=== PATIENT | female | born 1955 | race American Indian/Alaskan Native ===

== ENCOUNTER 2019-02-28 21:59 | Observation (INO) | payer BC, OTHER ==
[2019-02-28 21:59] VITALS: BMI 35.1
[2019-02-28] MEDS ORDERED: Albuterol-Ipratrop 3 mg / 0.5 (3 ml) UD ONE ×2 (22:21→22:51)
[2019-02-28] MEDS ORDERED: Albuterol-Ipratrop 3 mg / 0.5 (3 ml) UD INH STA ×3 (22:25→22:30)
--- NOTE | 2019-02-28 22:38 | ED PDOC ---
HPI: SOB/CHF/COPD Time Seen by Provider: 02/28/19 22:14 Chief Complaint (Nursing): Respiratory Distress Chief Complaint (Provider): Shortness of Breath History Per: Patient History/Exam Limitations: no limitations Onset/Duration Of Symptoms: Days (1x week) Current Symptoms Are (Timing): Still Present Severity: Moderate Associated Symptoms: Other (non-productive cough, pleuritic mid-sternal chest pain, palpitations). denies: Fever Additional Complaint(s): 63 year old female with a past medical history of asthma presents to the ED for an evaluation of shortness of breath ongoing for 1x week. Patient reports using her albuterol inhaler without relief. Patient also reports having a non- productive cough, pleuritic mid-sternal chest pain, and palpitations. Patient denies having fevers. PMD: None Past Medical History Reviewed: Historical Data, Nursing Documentation, Vital Signs Vital Signs: Last Vital Signs Temp 98.7 F 02/28/19 22:02 Pulse 104 H 02/28/19 22:02 Resp 22 02/28/19 22:02 BP 155/87 H 02/28/19 22:02 Pulse Ox 98 02/28/19 22:02 EDUARDO Report Viewed: Yes Primary Care Provider: FAMILY PROVIDER,NO - Medical History PMH: Asthma Denies: Chronic Kidney Disease - Surgical History Surgical History: Denies: Pacemaker - Family History Family History: States: No Known Family Hx - Social History Current smoker - smoking cessation education provided: No Alcohol: None Drugs: Denies - Immunization History Hx Tetanus Toxoid Vaccination: Yes Hx Influenza Vaccination: Yes Hx Pneumococcal Vaccination: No - Home Medications Home Medications: Ambulatory Orders Medication Instructions Recorded Fluticasone/Salmeterol [Advair 1 each IH BID 06/18/17 250-50 Diskus] Albuterol HFA [Ventolin HFA 90 1 aer IH Q4H PRN 03/01/19 mcg/actuation (8 g)] Albuterol/Ipratropium [Duoneb 3 3 ml IH Q4 PRN #30 neb 03/02/19 MG/3 Ml-0.5 MG/3 Ml 3 Ml] Prednisone 5 mg PO DAILY 21 Days tab.ds.pk 03/02/19 - Allergies Allergies/Adverse Reactions: Allergies Allergy/AdvReac Type Severity Reaction Status Date / Time iodine Allergy Verified 06/18/17 21:03 Review of Systems ROS Statement: Except As Marked, All Systems Reviewed And Found Negative Constitutional: Negative for: Fever Cardiovascular: Positive for: Chest Pain (pleuritic mid-sternal chest pain), Pa lpitations Respiratory: Positive for: Cough (non-productive), Shortness of Breath Physical Exam - Reviewed Nursing Documentation Reviewed: Yes Vital Signs Reviewed: Yes - Physical Exam Appears: Positive for: Well, Non-toxic, No Acute Distress Head Exam: Positive for: ATRAUMATIC, NORMOCEPHALIC Skin: Positive for: Normal Color, Warm, Dry Eye Exam: Positive for: Normal appearance Cardiovascular/Chest: Positive for: Regular Rate, Rhythm Respiratory: Positive for: Wheezing (bilateral), Other (poor air movement) Neurological/Psych: Positive for: Awake, Alert, Oriented (3x), Other (unable to speak in full sentences) - Laboratory Results Result Diagrams: 03/02/19 05:20 03/02/19 05:20 - ECG O2 Sat by Pulse Oximetry: 98 (RA) Pulse Ox Interpretation: Normal - Radiology X-Ray: Interpreted by Me X-Ray Interpretation: Cardiomegaly Medical Decision Making Medical Decision Makin:14 Initial impression: 63 year old female with asthma exacerbation and pleuritic chest pain. Initial plan: * XRay chest * EKG * CMP * troponin I * udip * CBC with differential * PT/PTT * blood culture * urinalysis * duoneb 3 ml INH (3x) * peak flow pre post treatment (3x) * solumedrol 125 IVP * reevaluation 23:00 Patient is signed out by me to Sai Hopper MD pending troponin and reevaluation. Scribe Attestation: Documented by Tammi Bedolla, acting as a scribe for Ladan Paulino MD. Provider Scribe Attestation: All medical record entries made by the Scribe were at my direction and personally dictated by me. I have reviewed the chart and agree that the record accurately reflects my personal performance of the history, physical exam, medical decision making, and the department course for this patient. I have also personally directed, reviewed, and agree with the discharge instructions and disposition. Disposition - Clinical Impression Clinical Impression: Asthma exacerbation - Patient ED Disposition Is Patient to be Admitted: Transfer of Care - Disposition Disposition Time: 23:00 Condition: STABLE Patient Signed Over To: Sai Hopper
[2019-02-28 22:45] LABS: BASO # 0.1 K/uL (0.0-0.2); BASO % 2.1 % (0.0-2.0); EOS # 0.1 K/uL (0.0-0.7); EOS % 1.8 % (0.0-4.0); HEMOGLOBIN 12.3 g/dL (12.0-16.0); LYMPH % 32.3 % (20.0-40.0); MEAN CELL VOLUME 91.7 fl (81.0-99.0); MEAN CORPUSCULAR HEMOGLOBIN 31.2 pg (27.0-31.0); MEAN PLATELET VOLUME 7.8 fl (7.2-11.7); MONO # 0.9 K/uL (0.0-0.8); NEUT # 3.1 K/uL (1.8-7.0); NEUT % 48.8 % (50.0-75.0); NRBC % 0.2 % (0.0-0.0); RBC 3.95 Mil/uL (3.80-5.20); RED CELL DISTRIBUTION WIDTH 14.1 % (11.5-14.5); WHITE BLOOD COUNT 6.3 K/uL (4.8-10.8)
[2019-02-28 22:49] LABS: INR 1.1
[2019-02-28 22:52] LABS: PARTIAL THROMBOPLASTIN TIME 38.8 Seconds (25.6-37.1)
[2019-02-28 22:58] LABS: ALB/GLOB RATIO 1.1 (1.0-2.1); ALBUMIN 4.2 g/dL (3.5-5.0); ALT/SGPT 24 U/L (9-52); AST/SGOT 24 U/L (14-36); BLOOD UREA NITROGEN 13 mg/dl (7-17); CALCIUM 9.1 mg/dL (8.4-10.2); GFR NON-AFRICAN AMERICAN > 60
--- NOTE | 2019-02-28 23:06 | ED PDOC ---
- Laboratory Results Result Diagrams: 02/28/19 22:30 02/28/19 22:30 Lab Results: PT 13.0 Seconds (9.8-13.1) 02/28/19 22: INR 1.1 02/28/19 22:30 APTT 38.8 Seconds (25.6-37.1) H 02/28/19 22:30 Total Bilirubin 0.5 mg/dl (0.2-1.3) 02/28/19 22:30 AST 24 U/L (14-36) 02/28/19 22:30 ALT 24 U/L (9-52) 02/28/19 22: Alkaline Phosphatase 78 U/L (38-126) 02/28/19: Total Protein 8.2 G/DL (6.3-8.2) 02/28/19 22: Albumin 4.2 g/dL (3.5-5.0) 02/28/19: Globulin 4.0 gm/dL (2.2-3.9) H 02/28/19: Albumin/Globulin Ratio 1.1 (1.0-2.1) 02/28/19 22:30 - ECG O2 Sat by Pulse Oximetry: 98 (RA) Medical Decision Making Medical Decision Makin:00 Patient is signed out to me by Ladan Paulino MD pending troponin and reevaluation. 00:45 Patient is still complaining of shortness of breath, still wheezing on exam, states that even talking makes her winded. Will give magnesium, obtain ABG. Case discussed with Dr. Figueroa who accepts patient for OBS MS for asthma exacerbation -- Scribe Attestation: Documented by Tammi Bedolla, acting as a scribe for Sai Hopper MD. Provider Scribe Attestation: All medical record entries made by the Scribe were at my direction and personally dictated by me. I have reviewed the chart and agree that the record accurately reflects my personal performance of the history, physical exam, medical decision making, and the department course for this patient. I have also personally directed, reviewed, and agree with the discharge instructions and disposition. Disposition Discussed With Dr.: Jasper Figueroa Doctor Will See Patient In The: Hospital Counseled Patient/Family Regarding: Studies Performed, Diagnosis - Clinical Impression Clinical Impression: Asthma exacerbation - POA Present On Arrival: None - Disposition Disposition: Hospitalized as Observation Patient Disposition Time: 00:45 Condition: FAIR
[2019-02-28 23:24] LABS: SQUAMOUS EPITHIAL 2 /hpf (0-5); URINE BACTERIA RARE (<OCC); URINE BILIRUBIN NEGATIVE (NEGATIVE); URINE BLOOD NEGATIVE (NEGATIVE); URINE CLARITY SLIGHTY-CLOUDY (Clear); URINE COLOR YELLOW (YELLOW); URINE GLUCOSE (UA) NEG (NEGATIVE); URINE LEUKOCYTE ESTERASE MOD Leu/uL (Negative); URINE PROTEIN NEGATIVE (NEGATIVE)
[2019-03-01 00:51] LABS: ABG ALLEN TEST YES; ARTERIAL BLOOD GAS HCO3 27.8 mmol/L (21-28); ARTERIAL BLOOD GAS O2 SAT 99.5 % (95-98); ARTERIAL BLOOD GAS PCO2 39 mm/Hg (35-45); ARTERIAL BLOOD GAS PH 7.46 (7.35-7.45); ARTERIAL BLOOD GAS PO2 94 mm/Hg (80-100); ARTERIAL BLOOD GAS TCO2 28.9 mmol/L (22-28)
[2019-03-01] MEDS ORDERED: Magnesium Sulfate 1 gm in D5W 1 GM/100 ML BAG IVPB ONE (01:22)
[2019-03-01] MEDS ORDERED: Magnesium Sulfate 2 gm/50 ml 2 GM/50 ML BAG IVPB ONE (01:23)
[2019-03-01] MEDS ORDERED: Magnesium Sulfate 2 gm/50 ml 2 GM/50 ML BAG ONE (01:24)
[2019-03-01 07:20] LABS: HEMOGLOBIN 12.6 g/dL (12.0-16.0); MEAN CELL VOLUME 93.5 fl (81.0-99.0); MEAN CORPUSCULAR HEMOGLOBIN 31.2 pg (27.0-31.0); MEAN CORPUSCULAR HGB CONC 33.3 g/dL (33.0-37.0); RBC 4.05 Mil/uL (3.80-5.20); RED CELL DISTRIBUTION WIDTH 13.7 % (11.5-14.5)
[2019-03-01 07:34] LABS: ALB/GLOB RATIO 1.1 (1.0-2.1); ALBUMIN 4.3 g/dL (3.5-5.0); ALT/SGPT 17 U/L (9-52); AST/SGOT 20 U/L (14-36); BLOOD UREA NITROGEN 13 mg/dl (7-17); CALCIUM 9.4 mg/dL (8.4-10.2); GFR NON-AFRICAN AMERICAN > 60; HDL CHOLESTEROL 44 MG/DL (30-70)
[2019-03-01 07:41] LABS: LDL CHOLESTEROL 130 mg/dL (0-129)
[2019-03-01] MEDS: Albuterol-Ipratrop 3 mg / 0.5 (3 ml) UD INH SCH ×5 (08:26→23:02)
[2019-03-01] MEDS ORDERED: methylPREDNISolone 40 MG in Sodium Chloride 0.9% 50 ML IVP SCH (09:00)
[2019-03-01] MEDS ORDERED: MethylPREDNISolone 40 mg Vial IVP SCH (09:00)
--- NOTE | 2019-03-01 09:05 | RAD ---
Date of service: 02/28/2019 HISTORY: SOB COMPARISON: Chest radiographs 06/21/2011. TECHNIQUE: 1 view obtained. FINDINGS: LUNGS: No active pulmonary disease. PLEURA: No significant pleural effusion identified, no pneumothorax apparent. CARDIOVASCULAR: No aortic atherosclerotic calcification present. Cardiomegaly is not excluded. No pulmonary vascular congestion. OSSEOUS STRUCTURES: No significant abnormalities. VISUALIZED UPPER ABDOMEN: Normal. OTHER FINDINGS: None. IMPRESSION: Potential interval cardiomegaly though technical magnification is at least in part in effect in this portable radiograph. No pulmonary vascular congestion, infiltrate or pleural disease appreciable.
--- NOTE | 2019-03-01 16:20 | CP.PCM.HP ---
History of Present Illness - History of Present Illness History of Present Illness: CC: Respiratory Distress. 63 y/o F, PMHx Asthma, came to ER [facility] [place] on 02/28/19 to be evaluated for SOB x 1 week, increased to moderate-severe on DOA, associated to LEIGH, dypnea when walking, cough non productive, non bloody. Pt using Albuterol HFA, Advair at home with no improvement. Worsening symptoms: R posterior CP with coughing, palpitations. Aggravated factor: walk/exercise/ADL's. Pt denied: fever, chills, n/v/d, abdominal pain, urinary symptoms, CP, syncope, back pain, sick contact, fall, recent travel out of [facility] [[email or web address] CXR: No vascular congestion, infiltrate or pleural disease. EKG: Normal sinus rhythm, minimal voltage criteria for LVH. Present on Admission - Present on Admission Any Indicators Present on Admission: No Review of Systems - Constitutional Constitutional: Other (negative) - EENT Eyes: Requires Corrective Lenses Ears: Other (negative) Nose/Mouth/Throat: Other (negative) - Cardiovascular Cardiovascular: Rapid Heart Rate - Respiratory Respiratory: Cough, Dyspnea, Dyspnea on Exertion, Pain with Coughing - Gastrointestinal Gastrointestinal: Other (negative) - Genitourinary Genitourinary: Other (negative) - Musculoskeletal Musculoskeletal: Other (negative) - Integumentary Integumentary: Other (negative) - Neurological Neurological: Other (negative) - Psychiatric Psychiatric: Other (negative) - Endocrine Endocrine: Other (negative) - Hematologic/Lymphatic Hematologic: Other (negative) Past Patient History - Infectious Disease Hx of Infectious Diseases: None - Past Medical History & Family History Past Medical History?: Yes Pertinent Family History: Unknown - Past Social History Smoking Status: Former Smoker Alcohol: None Drugs: Denies Home Situation {Lives}: With Family - CARDIAC Hx Cardiac Disorders: No Hx Pacemaker: No - PULMONARY Hx Respiratory Disorders: Yes Hx Asthma: Yes - NEUROLOGICAL Hx Neurological Disorder: No - HEENT Hx HEENT Problems: No - RENAL Hx Chronic Kidney Disease: No - ENDOCRINE/METABOLIC Hx Endocrine Disorders: No - HEMATOLOGICAL/ONCOLOGICAL Hx Blood Disorders: No Hx AIDS: No Hx Blood Transfusions: No Hx Human Immunodeficiency Virus (HIV): No - INTEGUMENTARY Hx Dermatological Problems: No - MUSCULOSKELETAL/RHEUMATOLOGICAL Hx Musculoskeletal Disorders: No Hx Falls: No - GASTROINTESTINAL Hx Gastrointestinal Disorders: No - GENITOURINARY/GYNECOLOGICAL Hx Genitourinary Disorders: No - PSYCHIATRIC Hx Psychophysiologic Disorder: No Hx Emotional Abuse: No Hx Physical Abuse: No Hx Substance Use: No - SURGICAL HISTORY Hx Surgeries: No - ANESTHESIA Hx Anesthesia: No Hx Anesthesia Reactions: No Hx Malignant Hyperthermia: No Has any member of the family had a problem w/ anesthesia?: No Meds Home Medications: Home Medication List Medication Instructions Recorded Confirmed Type Albuterol/Ipratropium [Duoneb 3 3 ml IH Q4 PRN #30 neb 03/02/19 Rx MG/3 Ml-0.5 MG/3 Ml 3 Ml] Prednisone 5 mg PO DAILY 21 Days tab.ds.pk 03/02/19 Rx Allergies/Adverse Reactions: Allergies Allergy/AdvReac Type Severity Reaction Status Date / Time iodine Allergy Verified 06/18/17 21:03 Physical Exam - Constitutional Appears: No Acute Distress - Head Exam Head Exam: NORMAL INSPECTION - Eye Exam Eye Exam: PERRL - ENT Exam ENT Exam: Normal Exam - Neck Exam Neck exam: Positive for: Normal Inspection - Respiratory Exam Respiratory Exam: Decreased Breath Sounds (at bases) - Cardiovascular Exam Cardiovascular Exam: REGULAR RHYTHM - GI/Abdominal Exam GI & Abdominal Exam: Normal Bowel Sounds, Soft - Extremities Exam Extremities exam: Positive for: normal inspection - Back Exam Back exam: NORMAL INSPECTION - Neurological Exam Neurological exam: Alert, Oriented x3 Additional comments: No motor/sensory deficit. - Psychiatric Exam Psychiatric exam: Normal Mood - Skin Skin Exam: Warm Results - Vital Signs Recent Vital Signs: Last Vital Signs Temp 97.9 F 03/01/19 07:51 Pulse 83 03/01/19 07:51 Resp 20 03/01/19 07:51 BP 127/78 03/01/19 07:51 Pulse Ox 95 03/01/19 07:51 reviewed J.P. - Labs Result Diagrams: 03/02/19 05:20 03/02/19 05:20 Labs: Laboratory Results - last 24 hr 02/28/19 02/28/19 02/28/19 22:30 22:30 22:30 WBC 6.3 RBC 3.95 Hgb 12.3 Hct 36.2 MCV 91.7 MCH 31.2 H MCHC 34.0 RDW 14.1 Plt Count 331 MPV 7.8 Neut % (Auto) 48.8 L Lymph % (Auto) 32.3 [place] % (Auto) 15.0 H Eos % (Auto) 1.8 Baso % (Auto) 2.1 H Neut # (Auto) 3.1 Lymph # (Auto) 2.0 [place] # (Auto) 0.9 H Eos # (Auto) 0.1 Baso # (Auto) 0.1 PT 13.0 INR 1.1 APTT 38.8 H pCO2 pO2 HCO3 ABG pH ABG Total CO2 ABG O2 Saturation ABG Base Excess Teodoro Test ABG Potassium A-a O2 Difference Glucose Lactate FiO2 Sodium 137 Potassium 4.6 Chloride 102 Carbon Dioxide 28 Anion Gap 12 BUN 13 Creatinine 0.6 L Est GFR ( Amer) > 60 Est GFR (Non-Af Amer) > 60 Random Glucose 100 Calcium 9.1 Total Bilirubin 0.5 AST 24 ALT 24 Alkaline Phosphatase 78 Troponin I < 0.0120 Total Protein 8.2 Albumin 4.2 Globulin 4.0 H Albumin/Globulin Ratio 1.1 Triglycerides Cholesterol LDL Cholesterol Direct HDL Cholesterol TSH 3rd Generation Arterial Blood Potassium Urine Color Urine Clarity Urine pH Ur Specific [place] Urine Protein Urine Glucose (UA) Urine Ketones Urine Blood Urine Nitrate Urine Bilirubin Urine Urobilinogen Ur Leukocyte Esterase Urine RBC (Auto) Urine Microscopic WBC Ur Squamous Epith Cells Urine Bacteria 02/28/19 03/01/19 03/01/19 23:09 00:47 06:20 WBC 5.0 RBC 4.05 Hgb 12.6 Hct 37.9 MCV 93.5 MCH 31.2 H MCHC 33.3 RDW 13.7 Plt Count 333 MPV Neut % (Auto) Lymph % (Auto) [place] % (Auto) Eos % (Auto) Baso % (Auto) Neut # (Auto) Lymph # (Auto) [place] # (Auto) Eos # (Auto) Baso # (Auto) PT INR APTT pCO2 39 pO2 94 HCO3 27.8 ABG pH 7.46 H ABG Total CO2 28.9 H ABG O2 Saturation 99.5 H ABG Base Excess 3.7 H Teodoro Test Yes ABG Potassium 4.0 A-a O2 Difference 57.0 Glucose 121 H Lactate 0.6 L FiO2 28.0 Sodium 137.0 Potassium Chloride 105.0 Carbon Dioxide Anion Gap BUN Creatinine Est GFR ( Amer) Est GFR (Non-Af Amer) Random Glucose Calcium Total Bilirubin AST ALT Alkaline Phosphatase Troponin I Total Protein Albumin Globulin Albumin/Globulin Ratio Triglycerides Cholesterol LDL Cholesterol Direct HDL Cholesterol TSH 3rd Generation Arterial Blood Potassium 4.0 Urine Color Yellow Urine Clarity Slighty-cloudy Urine pH 6.0 Ur Specific [place] 1.020 Urine Protein Negative Urine Glucose (UA) Neg Urine Ketones Negative Urine Blood Negative Urine Nitrate Negative Urine Bilirubin Negative Urine Urobilinogen 2.0 H Ur Leukocyte Esterase Mod Urine RBC (Auto) 3 Urine Microscopic WBC 1 Ur Squamous Epith Cells 2 Urine Bacteria Rare 03/01/19 06:20 WBC RBC Hgb Hct MCV MCH MCHC RDW Plt Count MPV Neut % (Auto) Lymph % (Auto) [place] % (Auto) Eos % (Auto) Baso % (Auto) Neut # (Auto) Lymph # (Auto) [place] # (Auto) Eos # (Auto) Baso # (Auto) PT INR APTT pCO2 pO2 HCO3 ABG pH ABG Total CO2 ABG O2 Saturation ABG Base Excess Teodoro Test ABG Potassium A-a O2 Difference Glucose Lactate FiO2 Sodium 140 Potassium 4.2 Chloride 103 Carbon Dioxide 27 Anion Gap 14 BUN 13 Creatinine 0.6 L Est GFR ( Amer) > 60 Est GFR (Non-Af Amer) > 60 Random Glucose 123 H Calcium 9.4 Total Bilirubin 0.3 AST 20 ALT 17 Alkaline Phosphatase 72 Troponin I Total Protein 8.4 H Albumin 4.3 Globulin 4.1 H Albumin/Globulin Ratio 1.1 Triglycerides 51 Cholesterol 218 H LDL Cholesterol Direct 130 H HDL Cholesterol 44 TSH 3rd Generation 0.28 L Arterial Blood Potassium Urine Color Urine Clarity Urine pH Ur Specific [place] Urine Protein Urine Glucose (UA) Urine Ketones Urine Blood Urine Nitrate Urine Bilirubin Urine Urobilinogen Ur Leukocyte Esterase Urine RBC (Auto) Urine Microscopic WBC Ur Squamous Epith Cells Urine Bacteria reviewed J.P. - EKG Data EKG comments: reviewed J.P. - Imaging and Cardiology Chest x-ray Status: Report reviewed by me (LexyP.) Assessment & Plan (1) Asthma exacerbation Status: Acute Priority: High (2) Pleuritic chest pain Status: Acute Priority: High - Assessment and Plan (Free Text) Plan: F/U Blood C-S, continue Duoneb, Solu-Medrol, O2 NC 2 L/M and rest of Tx. - Date & Time Date: 03/01/19 Time: 11:30
--- NOTE | 2019-03-01 19:01 | CARD ---
APPROVED REPORT Date of service: 02/28/2019 EKG Measurement Heart [id number] <Conclusion> Normal sinus rhythm Minimal voltage criteria for LVH, may be normal variant Borderline ECG
[2019-03-01] MEDS: FLUTICASONE PROPION/SALMETEROL 232-14 INHALER IH SCH (20:26)
[2019-03-01] MEDS: MethylPREDNISolone 40 mg Vial IVP SCH (20:29)
[2019-03-02 00:51] VITALS: TEMP 97.7
[2019-03-02] MEDS: Albuterol-Ipratrop 3 mg / 0.5 (3 ml) UD INH SCH ×3 (03:47→11:28)
[2019-03-02 06:32] LABS: BASO # 0.1 K/uL (0.0-0.2); BASO % 0.6 % (0.0-2.0); EOS % 0.1 % (0.0-4.0); LYMPH # 1.2 K/uL (1.0-4.3); LYMPH % 13.5 % (20.0-40.0); MEAN CELL VOLUME 93.7 fl (81.0-99.0); MEAN CORPUSCULAR HEMOGLOBIN 31.2 pg (27.0-31.0); MEAN CORPUSCULAR HGB CONC 33.3 g/dL (33.0-37.0); MEAN PLATELET VOLUME 7.9 fl (7.2-11.7); MONO # 0.8 K/uL (0.0-0.8); MONO % 9.2 % (0.0-10.0); NEUT # 6.7 K/uL (1.8-7.0); NEUT % 76.6 % (50.0-75.0); NRBC % 0.1 % (0.0-0.0); RBC 3.86 Mil/uL (3.80-5.20); RED CELL DISTRIBUTION WIDTH 14.3 % (11.5-14.5); WHITE BLOOD COUNT 8.7 K/uL (4.8-10.8)
[2019-03-02 06:43] LABS: ALB/GLOB RATIO 1.1 (1.0-2.1); ALT/SGPT 16 U/L (9-52); AST/SGOT 19 U/L (14-36); BLOOD UREA NITROGEN 15 mg/dl (7-17); CALCIUM 9.1 mg/dL (8.4-10.2); GFR NON-AFRICAN AMERICAN > 60; HDL CHOLESTEROL 41 MG/DL (30-70)
[2019-03-02 06:53] LABS: LDL CHOLESTEROL 113 mg/dL (0-129)
[2019-03-02 08:19] VITALS: BP 109/64; PULSE 80; RESP 20
[2019-03-02] MEDS: FLUTICASONE PROPION/SALMETEROL 232-14 INHALER IH SCH (09:04)
[2019-03-02] MEDS: MethylPREDNISolone 40 mg Vial IVP SCH (09:06)
--- NOTE | 2019-03-02 14:05 | CP.PCM.PN ---
Objective - Vital Signs/Intake and Output Vital Signs (last 24 hours): Temp Pulse Resp BP Pulse Ox 97.7 F 80 20 109/64 97 03/02/19 08:17 03/02/19 08:17 03/02/19 08:17 03/02/19 08:17 03/02/19 08:17 - Medications Medications: Current Medications Albuterol/Ipratropium (Duoneb 3 Mg/0.5 Mg (3 Ml) Ud) 3 ml INH RQ4 JADEN Last Admin: 03/02/19 11:28 Dose: 3 ml Methylprednisolone (Solu-Medrol) 40 mg IVP Q12 JADEN Last Admin: 03/02/19 09:06 Dose: 40 mg - Labs Labs: 03/02/19 05:20 03/02/19 05:20 PT 13.0 Seconds (9.8-13.1) 02/28/19 22:30 INR 1.1 02/28/19 22:30 APTT 38.8 Seconds (25.6-37.1) H 02/28/19 22:30 Assessment and Plan (1) Asthma exacerbation Status: Acute (2) Pleuritic chest pain Status: Acute
[2019-03-02] MEDS ORDERED: Pneumococcal 23-Valent Vaccine IM ONE (14:11)
[2019-03-02 15:58] VITALS: O2SAT 98
--- NOTE | 2019-03-02 16:33 | CP.PCM.DIS ---
Provider - Provider Date of Admission: 03/01/19 00:48 Attending physician: Jasper Figueroa MD Time Spent in preparation of Discharge (in minutes): 35 Diagnosis - Discharge Diagnosis (1) Asthma exacerbation Status: Acute Priority: High (2) Pleuritic chest pain Status: Acute Priority: High Hospital Course - Lab Results Lab Results: Micro Results 02/28/19 02:10 Blood-Venous Blood Culture - Preliminary NO GROWTH AFTER 24 HOURS 02/28/19 02:10 Blood-Venous Blood Culture - Preliminary NO GROWTH AFTER 24 HOURS Most Recent Lab Values WBC 8.7 K/uL (4.8-10.8) D 03/02/19 05:20 RBC 3.86 Mil/uL (3.80-5.20) 03/02/19 05:20 Hgb 12.0 g/dL (12.0-16.0) 03/02/19 05:20 Hct 36.2 % (34.0-47.0) 03/02/19 05:20 MCV 93.7 fl (81.0-99.0) 03/02/19 05:20 MCH 31.2 pg (27.0-31.0) H 03/02/19 05:20 MCHC 33.3 g/dL (33.0-37.0) 03/02/19 05:20 RDW 14.3 % (11.5-14.5) 03/02/19 05:20 Plt Count 345 K/uL (130-400) 03/02/19 05:20 MPV 7.9 fl (7.2-11.7) 03/02/19 05:20 Neut % (Auto) 76.6 % (50.0-75.0) H 03/02/19 05:20 Lymph % (Auto) 13.5 % (20.0-40.0) L 03/02/19 05:20 [place] % (Auto) 9.2 % (0.0-10.0) 03/02/19 05:20 Eos % (Auto) 0.1 % (0.0-4.0) 03/02/19 05:20 Baso % (Auto) 0.6 % (0.0-2.0) 03/02/19 05:20 Neut # (Auto) 6.7 K/uL (1.8-7.0) 03/02/19 05:20 Lymph # (Auto) 1.2 K/uL (1.0-4.3) 03/02/19 05:20 [place] # (Auto) 0.8 K/uL (0.0-0.8) 03/02/19 05:20 Eos # (Auto) 0.0 K/uL (0.0-0.7) 03/02/19 05:20 Baso # (Auto) 0.1 K/uL (0.0-0.2) 03/02/19 05:20 PT 13.0 Seconds (9.8-13.1) 02/28/19 22:30 INR 1.1 02/28/19 22:30 APTT 38.8 Seconds (25.6-37.1) H 02/28/19 22:30 pCO2 39 mm/Hg (35-45) 03/01/19 00:47 pO2 94 mm/Hg (80-100) 03/01/19 00:47 HCO3 27.8 mmol/L (21-28) 03/01/19 00:47 ABG pH 7.46 (7.35-7.45) H 03/01/19 00:47 ABG Total CO2 28.9 mmol/L (22-28) H 03/01/19 00:47 ABG O2 Saturation 99.5 % (95-98) H 03/01/19 00:47 ABG Base Excess 3.7 mmol/L (-2.0-3.0) H 03/01/19 00:47 Teodoro Test Yes 03/01/19 00:47 ABG Potassium 4.0 mmol/L (3.6-5.2) 03/01/19 00:47 A-a O2 Difference 57.0 mm/Hg 03/01/19 00:47 Sodium 137.0 mmol/L (132-148) 03/01/19 00:47 Chloride 105.0 mmol/L (98-107) 03/01/19 00:47 Glucose 121 mg/dL (65-105) H 03/01/19 00:47 Lactate 0.6 mmol/L (0.7-2.1) L 03/01/19 00:47 FiO2 28.0 % 03/01/19 00:47 Sodium 141 mmol/l (132-148) 03/02/19 05:20 Potassium 4.8 MMOL/L (3.6-5.0) 03/02/19 05:20 Chloride 102 mmol/L (98-107) 03/02/19 05:20 Carbon Dioxide 31 mmol/L (22-30) H 03/02/19 05:20 Anion Gap 13 (10-20) 03/02/19 05:20 BUN 15 mg/dl (7-17) 03/02/19 05:20 Creatinine 0.5 mg/dl (0.7-1.2) L 03/02/19 05:20 Est GFR ( Amer) > 60 03/02/19 05:20 Est GFR (Non-Af Amer) > 60 03/02/19 05:20 Random Glucose 132 mg/dL (65-105) H 03/02/19 05:20 Calcium 9.1 mg/dL (8.4-10.2) 03/02/19 05:20 Total Bilirubin 0.2 mg/dl (0.2-1.3) 03/02/19 05:20 AST 19 U/L (14-36) 03/02/19 05:20 ALT 16 U/L (9-52) 03/02/19 05:20 Alkaline Phosphatase 64 U/L (38-126) 03/02/19 05:20 Troponin I < 0.0120 ng/mL (0.00-0.120) 02/28/19 22:30 Total Protein 7.7 G/DL (6.3-8.2) 03/02/19 05:20 Albumin 4.0 g/dL (3.5-5.0) 03/02/19 05:20 Globulin 3.8 gm/dL (2.2-3.9) 03/02/19 05:20 Albumin/Globulin Ratio 1.1 (1.0-2.1) 03/02/19 05:20 Triglycerides 46 mg/DL (0-149) 03/02/19 05:20 Cholesterol 196 mg/dL (0-199) 03/02/19 05:20 LDL Cholesterol Direct 113 mg/dL (0-129) 03/02/19 05:20 HDL Cholesterol 41 MG/DL (30-70) 03/02/19 05:20 Thyroxine (T4) 9.81 ug/dl (5.5-11.0) 03/02/19 05:20 TSH 3rd Generation 0.39 mIU/ML (0.46-4.68) L 03/02/19 05:20 Arterial Blood Potassium 4.0 mmol/L (3.6-5.2) 03/01/19 00:47 Urine Color Yellow (YELLOW) 02/28/19 23:09 Urine Clarity Slighty-cloudy (Clear) 02/28/19 23:09 Urine pH 6.0 (5.0-8.0) 02/28/19 23:09 Ur Specific [place] 1.020 (1.003-1.030) 02/28/19 23:09 Urine Protein Negative mg/dL (NEGATIVE) 02/28/19 23:09 Urine Glucose (UA) Neg mg/dL (NEGATIVE) 02/28/19 23:09 Urine Ketones Negative mg/dL (NEGATIVE) 02/28/19 23:09 Urine Blood Negative (NEGATIVE) 02/28/19 23:09 Urine Nitrate Negative (NEGATIVE) 02/28/19 23:09 Urine Bilirubin Negative (NEGATIVE) 02/28/19 23:09 Urine Urobilinogen 2.0 mg/dL (0.2-1.0) H 02/28/19 23:09 Ur Leukocyte Esterase Mod Yessy/uL (Negative) 02/28/19 23:09 Urine RBC (Auto) 3 /hpf (0-3) 02/28/19 23:09 Urine Microscopic WBC 1 /hpf (0-5) 02/28/19 23:09 Ur Squamous Epith Cells 2 /hpf (0-5) 02/28/19 23:09 Urine Bacteria Rare (<OCC) 02/28/19 23:09 - Date & Time of H&P Date of H&P: 03/01/19 Time of H&P: 11:30 Discharge Exam - Head Exam Head Exam: ATRAUMATIC, NORMOCEPHALIC - Eye Exam Eye Exam: PERRL - ENT Exam ENT Exam: Normal Exam - Neck Exam Neck exam: Normal Inspection - Respiratory Exam Respiratory Exam: Decreased Breath Sounds (at bases) - Cardiovascular Exam Cardiovascular Exam: REGULAR RHYTHM - GI/Abdominal Exam GI & Abdominal Exam: Normal Bowel Sounds, Soft - Extremities Exam Extremities exam: normal inspection - Back Exam Back exam: NORMAL INSPECTION - Neurological Exam Neurological exam: Alert, Oriented x3 Additional comments: No motor sensory deficit - Psychiatric Exam Psychiatric exam: Normal Mood - Skin Skin Exam: Warm Discharge Plan - Discharge Medications Prescriptions: Albuterol/Ipratropium [Duoneb 3 MG/3 Ml-0.5 MG/3 Ml 3 Ml] 3 ml IH Q4 PRN #30 neb PRN Reason: Shortness Of Breath Prednisone 5 mg PO DAILY 21 Days tab.ds.pk - Follow Up Plan Condition: STABLE Disposition: HOME/ ROUTINE Patient education suggested?: Yes Instructions: Asthma, Adult (DC) Additional Instructions: hacer alex con stephens doctor primario dentro de 1 semana Referrals: Jasper Figueroa MD [Staff Provider] -
== END 2019-03-02 14:48 | disposition home or self-care (01) ==
LOC: H.ER 21:59 → H.ERHOLD 03-01 00:48 → H.MEDSURG1 03-01 03:26
PROVIDERS: ADMIT Internal Medicine Pulmonary Disease; ATTEND Internal Medicine Pulmonary Disease
DX: J45.901 Unspecified asthma with (acute) exacerbation (principal); Z87.891 Personal history of nicotine dependence; Z23 Encounter for immunization; Z91.041 Radiographic dye allergy status
CPT/HCPCS: 36415; 71045; 80053; 80061; 81003; 82803; 84436; 84443; 84484; 85025; 85027; 85610; 85730; 87040; 90471; 90732; 93005; 94150; 94640; 96374; 99284; G0378; J2920; J2930